=== PATIENT | male | born 1945 | race Caucasian/White ===

== ENCOUNTER → 2020-05-26 13:58 | Outpatient (CLI) | payer MEDICARE, SELFPAY ==
--- NOTE | ~2020-05-26 | MR_ITS ---
EXAMINATION: MR thoracic spine wo/w con EXAM DATE: 05/26/2020 15:45 INDICATION: Pain down left leg for one month. TECHNIQUE: Multi-sequential, multiplanar MR images of the thoracic spine were obtained without contra st. Sagittal T1, T2, T2 fat saturation, axial T2 weighted images reviewed. Axial T1 weighted sequenc e. Patient was then injected with 19 mL Multihance intravenous contrast and reimaged. Postcontrast axial and sagittal T1-weighted fat saturation sequences were obtained. There is no prior study for comparison. FINDINGS: There is mild to moderate mid and lower thoracic disc disease. The vertebral body heights r elatively well-maintained. There is mild lower thoracic kyphosis. The vertebral bodies are aligned in the AP dimension. Thoracic neural foramen and central canal widely patent. Mild diffuse thoracic fac et arthropathy. The spinal cord signal intensity and intrinsic morphology is normal. There are no bridger picious marrow signal abnormalities. Paraspinal soft tissue is unremarkable. There are no areas of abnormal enhancement on the post contrast images. IMPRESSION: 1. 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 2. Mild facet arthropathy. Reviewed, dictated and finalized at location B. SLATIVE ANALYST
--- NOTE | ~2020-05-26 | MR_ITS ---
EXAMINATION: MR lumbar spine wo [facility] EXAM DATE: 05/26/2020 15:33 INDICATION: Left leg radiculopathy. TECHNIQUE: Multi-sequential, multiplanar MR images of the lumbar spine were obtained without contrast . Sagittal T1, T2, T2 fat saturation images. Axial T2 weighted images. There is no prior study for comparison. FINDINGS: Surgical changes posterior to the L3-4 level. Moderate loss of the T11-12 and T12-L1 disc h eights. Mild to moderate disc disease L1-L3 and L4-S1. There is 2 mm retrolisthesis L1 on L2, L2 on L 3 and L5 on S1. 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 The conus medullaris terminates at the L1/2 l evel and has normal signal intensity and morphology. Paraspinal soft tissue is unremarkable. Level by level evaluation: T12-L1: There is a mild diffuse disc bulge. Facet arthropathy: Mild. Neural foraminal stenosis: No stenosis. Central canal stenosis: No stenosis. L1-L2: There is a mild diffuse disc bulge. Facet arthropathy: Mild to moderate right. Neural foraminal stenosis: Mild bilateral. Central canal stenosis: No stenosis. L2-L3: There is a mild diffuse disc bulge. Facet arthropathy: Mild to moderate. Neural foraminal stenosis: Mild to moderate bilateral. Central canal stenosis: Mild. L3-L4: There is a mild diffuse disc bulge, superimposed moderate left central protrusion with inferio r migration narrowing the left lateral recess, causing mass effect on L4 nerve root. Facet arthropathy: Moderate. Neural foraminal stenosis: Mild to moderate bilateral. Central canal stenosis: Mild to moderate. L4-L5: There is a mild diffuse disc bulge. Facet arthropathy: Moderate right, mild to moderate left. Neural foraminal stenosis: Moderate bilateral. Central canal stenosis: Mild to moderate. L5-S1: There is a mild diffuse disc bulge. Facet arthropathy: Mild bilateral. Neural foraminal stenosis: Mild to moderate bilateral. Central canal stenosis: No stenosis. IMPRESSION: 1. L3-4 left central protrusion with inferior migration causing some mass effect on traversing left L4 nerve root in the lateral recess. 2. Overall mild to moderate lumbar spondylosis. Reviewed, dictated and finalized at location B. R CANER IMPRESSION: 1. L3-4 left central protrusion with inferior migration causing some mass effe ct on traversing left L4 nerve root in the lateral recess. 2. Overall mild to moderate lumbar spondylosis.
[2020-05-26 14:38] LABS: Estimated Glomerular Filt Rate > 60
== END ==
PROVIDERS: PCP Internal Medicine; Visit Provider Nurse Practitioner Family
DX: M47.26 Other spondylosis with radiculopathy, lumbar region (principal); M51.26 Other intervertebral disc displacement, lumbar region
CPT/HCPCS: 72148; 72157; A9577